=== PATIENT | female | born 1950 | race Caucasian/White ===

== ENCOUNTER 2016-12-07 06:57 | Emergency (ER) | payer SELFPAY ==
[2016-12-07 07:10] VITALS: BP 141/62
--- NOTE | 2016-12-07 07:51 | ER Document Report ---
HPI - HPI Patient complains to provider of: cough and fever Onset: Yesterday - Morning Onset/Duration: Sudden Pain Level: 3 Context: 66-year-old nonsmoker female complaining of sore throat, cough, fever and congestion since yesterday. She wants to know if she has strep throat or influenza because her 38-year-old daughter has metastatic breast cancer. Associated Symptoms: None Exacerbated by: Denies Relieved by: Denies Similar symptoms previously: No - ROS ROS below otherwise negative: Yes Systems Reviewed and Negative: Yes All other systems reviewed and negative - CONSTITUTIONAL Constitutional: REPORTS: Fever - 101.1 last night, Chills - EENT EENT: REPORTS: Nasal Drainage-Clear, Congestion - CARDIOVASCULAR Cardiovascular: DENIES: Chest pain - RESPIRATORY Respiratory: REPORTS: Coughing - Nonproductive - DERM Skin Color: Normal Skin Problems: None - NURSING COMMENTS Comment: Pt states that she has had cold like symptoms since yesterday morning. States that her daughter has CA and she wants to make sure that she cant get sick from this cold. States that she had a fever last night. Reports delroy productive cough. States that her best friend has the Flu and she was also aorund someone this weekend that has strep throat.Pt is AAOX3 with NAD noted at this time. Past Medical History - General Information source: Patient - Social History Smoking Status: Never Smoker Cigarette use (# per day): No Chew tobacco use (# tins/day): No Frequency of alcohol use: None Drug Abuse: None Lives with: Family Family History: Reviewed & Not Pertinent - Medical History Medical History: Negative Renal/ Medical History: Denies: Hx Peritoneal Dialysis Surgical Hx: Negative Past Surgical History: Reports: Hx Hysterectomy - Immunizations Hx Diphtheria, Pertussis, Tetanus Vaccination: Yes Vertical Provider Document - CONSTITUTIONAL Agree With Documented VS: Yes Exam Limitations: No Limitations - INFECTION CONTROL TRAVEL OUTSIDE OF THE [place] IN LAST 30 DAYS: No - HEENT HEENT: Normocephalic - Minimal, PERRLA, Pharyngeal Erythema. negative: Conjuctival Injection, Tympanic Membrane Red, Tympanic Membrane Bulging Notes: Boggy nares, course cough - NECK Neck: Supple. negative: Lymphadenopathy-Left, Lymphadenopathy-Right - RESPIRATORY Respiratory: Breath Sounds Normal, No Respiratory Distress O2 Sat by Pulse Oximetry: 97 - CARDIOVASCULAR Cardiovascular: Regular Rate, Regular Rhythm - GI/ABDOMEN Gastrointestinal: Abdomen Soft, Abdomen Non-Tender - MUSCULOSKELETAL/EXTREMETIES Musculoskeletal/Extremeties: SANDRA MEREDITH - NEURO Level of Consciousness: Awake, Alert - DERM Integumentary: Warm, Dry, No Rash Course - Re-evaluation Re-evalutation: 12/07/16 08:34 Strep and influenza tests are negative. - Vital Signs Vital signs: Temp Pulse Resp BP Pulse Ox 98.4 F 77 16 141/62 H 97 12/07/16 07:06 12/07/16 07:06 12/07/16 07:06 12/07/16 07:06 12/07/16 07:06 Discharge - Discharge Clinical Impression: upper respiratory infection Condition: Good Disposition: HOME, SELF-CARE Instructions: Upper Respiratory Illness ([facility]), Acetaminophen, Use of Over-The- Counter Ibuprofen ([facility]) Additional Instructions: Coolmist humidifier, wash it daily consider using masks when with daughter, keep fresh air circulating in the home wash hands well Plenty of sleep Plenty of fluids Return to the emergency room if worse
== END 2016-12-07 08:39 | disposition home or self-care (01) ==
LOC: ER 06:57
DX: J06.9 Acute upper respiratory infection, unspecified (principal); R05 Cough; R50.9 Fever, unspecified; J02.9 Acute pharyngitis, unspecified; R09.81 Nasal congestion
CPT/HCPCS: 87070; 87804; 87880; 99283

== ENCOUNTER → 2017-06-25 | Outpatient (CLI) | payer OTHER ==
--- NOTE | 2017-06-25 15:29 | WOMENS IMAGING REPORT ---
EXAM DESCRIPTION: BILAT SCREENING MAMMO W/CAD COMPLETED DATE/TIME: 06/25/2017 2:49 pm REASON FOR STUDY: ROUTINE SCREENING; Z12.31 Z12.31 ENCNTR SCREEN MAMMOGRAM FOR MALIGNANT NEOPLASM O F KAREN COMPARISON: Annual priors dating back to December 2008. TECHNIQUE: Standard craniocaudal and mediolateral oblique views of each breast recorded using digita l acquisition. LIMITATIONS: None. FINDINGS: No masses, calcifications or architectural distortion. No areas of suspicion. Read with the assistance of CAD. .[facility] - R2 Cenova Version 1.3 .[facility] Imaging - R2 Cenova Version 1.3 .[facility] - R2 Cenova Version 2.4 .[facility] - R2 Cenova Version 2.4 .[facility] - R2 [employer] Version 9.2 IMPRESSION: NORMAL MAMMOGRAM. BIRADS 1. BREAST DENSITY: b. There are scattered areas of fibroglandular density. BIRAD: 1 NEGATIVE RECOMMENDATION: ROUTINE SCREENING COMMENT: The patient has been notified of the results by letter per SA requirements. Additional no tification policies are in place for contacting patient with suspicious or incomplete findings. Quality ID #[id number]: The [employer] recommends an annual screening mammogram for women aged 40 years or over. This facility utilizes a reminder system to ensure that all patients receive reminder letters, and/or direct phone calls for appointments. This includes reminders for routine scr eening mammograms, diagnostic mammograms, or other Breast Imaging Interventions when appropriate. Th is patient will be placed in the appropriate reminder system. The [employer] (ACR) has developed recommendations for screening MRI of the breast s in certain patient populations, to be used in conjunction with mammography. Breast MRI surveillanc e may be appropriate for women with more than 20% lifetime risk of developing breast cancer as deter mined by genetic testing, significant family history of the disease, or history of mantle radiation f or Hodgkins Disease. ACR Practice Guidelines 2008. TECHNICAL DOCUMENTATION: FINDING NUMBER: (1) ASSESSMENT: (1) JOB ID: [id number] [employer]- All Rights Reserved
== END ==
LOC: WI 14:24
PROVIDERS: ATTEND Family Medicine
DX: Z12.31 Encounter for screening mammogram for malignant neoplasm of breast (principal)
CPT/HCPCS: 77067; G0202

== ENCOUNTER 2019-07-27 19:50 | Emergency (ER) | payer MEDICARE ==
--- NOTE | 2019-07-27 20:16 | ER Document Report ---
ED Medical Screen (RME) - General Chief Complaint: Fall Injury Stated Complaint: FALL Time Seen by Provider: 07/27/19 20:08 Primary Care Provider: TAN BEAR MD [Primary Care Provider] - Follow up as needed Mode of Arrival: Ambulatory Information source: Patient Notes: 68-year-old female presents emergency department after she fell in the parking lot. Reports she tripped and face planted in [facility] parking lot. Denies change in LOC. She has laceration to her lower lip and fractured top#8 tooth.. I have greeted and performed a rapid initial assessment of this patient. A comprehensive ED assessment and evaluation of the patient, analysis of test results and completion of the medical decision making process will be conducted by additional ED providers. Dictation of this chart was performed using voice recognition software; therefore, there may be some unintended grammatical errors. TRAVEL OUTSIDE OF THE [place] IN LAST 30 DAYS: No - Related Data Allergies/Adverse Reactions: Sulfa (Sulfonamide Antibiotics) Allergy (Severe, Verified 12/07/16 07:04) Anaphylaxis morphine Adverse Reaction (Severe, Verified 12/07/16 07:04) VOMITING lincomycin [From Lincocin] Adverse Reaction (Mild, Verified 12/07/16 07:04) Hives Past Medical History - Social History Chew tobacco use (# tins/day): No Frequency of alcohol use: None Drug Abuse: None Renal/ Medical History: Denies: Hx Peritoneal Dialysis Past Surgical History: Reports: Hx Hysterectomy - Immunizations Hx Diphtheria, Pertussis, Tetanus Vaccination: Yes Physical Exam - Vital signs Vitals: Temp Pulse Resp BP Pulse Ox 98.3 F 75 18 146/77 H 99 07/27/19 19:59 07/27/19 19:59 07/27/19 19:59 07/27/19 19:59 07/27/19 19:59 Course - Vital Signs Vital signs: Temp Pulse Resp BP Pulse Ox 98.3 F 75 18 146/77 H 99 07/27/19 19:59 07/27/19 19:59 07/27/19 19:59 07/27/19 19:59 07/27/19 19:59 Doctor's Discharge - Discharge Referrals: TAN BEAR MD [Primary Care Provider] - Follow up as needed
--- NOTE | 2019-07-27 20:45 | ER Document Report ---
ED Fall - General Chief Complaint: Fall Injury Stated Complaint: FALL Time Seen by Provider: 07/27/19 20:08 Primary Care Provider: TAN BEAR MD [Primary Care Provider] - Follow up as needed Mode of Arrival: Ambulatory Information source: Patient Notes: Patient is a 68-year-old female that comes to the emergency department for chief complaint of a fall in the parking lot, she was here with her grandson, morelia, states she was not paying attention and tripped. She landed on her right knee and has abrasions to her lower lip and a small abrasion to her upper lip. She also has a tiny abrasion over the left shoulder. She denies loss of consciousness, vomiting, she is not on a blood thinner, she denies alcohol. Her tetanus is up-to-date within 5 years. TRAVEL OUTSIDE OF THE [place] IN LAST 30 DAYS: No - Related data Allergies/Adverse Reactions: Sulfa (Sulfonamide Antibiotics) Allergy (Severe, Verified 12/07/16 07:04) Anaphylaxis morphine Adverse Reaction (Severe, Verified 12/07/16 07:04) VOMITING lincomycin [From Lincocin] Adverse Reaction (Mild, Verified 12/07/16 07:04) Hives Past Medical History - General Information source: Patient - Social History Smoking Status: Never Smoker Chew tobacco use (# tins/day): No Frequency of alcohol use: None Drug Abuse: None Lives with: Family Family History: Reviewed & Not Pertinent Patient has suicidal ideation: No Patient has homicidal ideation: No Renal/ Medical History: Denies: Hx Peritoneal Dialysis Past Surgical History: Reports: Hx Hysterectomy - Immunizations Immunizations up to date: Yes Hx Diphtheria, Pertussis, Tetanus Vaccination: Yes Review of Systems - Review of Systems Constitutional: No symptoms reported EENT: See HPI Cardiovascular: No symptoms reported Respiratory: No symptoms reported Gastrointestinal: No symptoms reported Genitourinary: No symptoms reported Female Genitourinary: No symptoms reported Musculoskeletal: See HPI Skin: No symptoms reported Hematologic/Lymphatic: No symptoms reported Neurological/Psychological: No symptoms reported Physical Exam - Vital signs Vitals: Temp Pulse Resp BP Pulse Ox 98.3 F 75 18 146/77 H 99 07/27/19 19:59 07/27/19 19:59 07/27/19 19:59 07/27/19 19:59 07/27/19 19:59 - Notes Notes: GENERAL: Alert, interacts well HEAD: Normocephalic, atraumatic. EYES: Pupils equal, round, and reactive to light. Extraocular movements intact. ENT: Oral mucosa moist, tongue midline. Oropharynx unremarkable. Airway patent. Nares patent, no nasal septal hematoma, TM's intact. The lower lip has a small irregular laceration less than 0.5 cm in length, this is superficial and when the lip goes back into normal position this fully approximates. No current bleeding. Small abrasion to the upper lip as well. There is a chipped tooth at tooth #9 without any evidence of trauma to the gum, no signs of trauma or concerning findings in the oropharyngeal exam otherwise. NECK: Full range of motion. Supple. Trachea midline. LUNGS: Clear to auscultation bilaterally, no wheezes, rales, or rhonchi. No respiratory distress. HEART: Regular rate and rhythm. No murmur ABDOMEN: Soft, non-tender. Non-distended. Bowel sounds present in all 4 quadrants. GENITOURINARY: Deferred EXTREMITIES: There is a contusion with small amount of ecchymosis over the proximal tibia of the right leg just below the patella. Range of motion intact, no severe tenderness, no significant swelling to the knee joint, normal distal neurovascular exam. Normal lower extremities otherwise. Normal upper extremities. BACK: no cervical, thoracic, lumbar midline tenderness. No saddle anesthesia, normal distal neurovascular exam. Moves all extremities in full range of motion. NEUROLOGICAL: Alert and oriented x3. Normal speech. Cranial nerves II through XII grossly intact. PSYCH: Appears to have been recently crying but otherwise unremarkable SKIN: Warm, dry, normal turgor. No rashes or lesions noted. Course - Re-evaluation Re-evalutation: Patient with a superficial inner lip laceration on the lower lip, discussed options, decision was made not to close this because it approximates so well, it is superficial, and it is not bleeding. There is a small chipped tooth is well without evidence of trauma to the gums or other oropharyngeal injury. Facial imaging and imaging of the brain negative for acute findings. X-ray of the knee shows chronic tendinitis of the inferior patellar tendon, otherwise unremarkable, I did provide patient with a copy of report and discussed this. Discussed head injury precautions, wound care, follow-up, and return precautions. Patient states appreciation and agreement, requests some tramadol for pain at home, she was provided with this. Stable at time of discharge. - Vital Signs Vital signs: Temp Pulse Resp BP Pulse Ox 98.5 F 70 17 135/78 H 99 07/27/19 22:48 07/27/19 22:48 07/27/19 22:48 07/27/19 22:48 07/27/19 22:48 Discharge - Discharge Clinical Impression: Fall Qualifiers: Encounter type: initial encounter Qualified Code(s): W19.XXXA - Unspecified fall, initial encounter Lip abrasion Qualifiers: Encounter type: initial encounter Qualified Code(s): S00.511A - Abrasion of lip, initial encounter Broken tooth Qualifiers: Encounter type: initial encounter Fracture type: closed Qualified Code(s): S02.5XXA - Fracture of tooth (traumatic), initial encounter for closed fracture Right knee injury Qualifiers: Encounter type: initial encounter Qualified Code(s): S89.91XA - Unspecified injury of right lower leg, initial encounter Condition: Stable Disposition: HOME, SELF-CARE Additional Instructions: The imaging does not show any concerning a normality except for some chronic inflammation of the right patellar tendon as we discussed. Please follow-up with a dentist for your tooth injury, the lip should heal on its own without difficulty with time, clean the area gently with soap and water and you can apply a topical antibiotic to the area. Apply ice to the knee, take ibuprofen or similar medication for the inflammation and pain, if needed take the tramadol for pain as well. Please follow head injury precautions listed below. Follow-up with orthopedics for management of your right knee if symptoms continue. Return for any concerning symptoms. Head Injury Precautions At this point, there is no evidence that your head injury is serious. Observation is necessary, however. Limit activity for the first 24 hours. During the first 24 hours, check to see approximately every two to three hours that the patient is easily arousable, responds normally, and can perform common tasks such as walking without difficulty. Contact your doctor or go to the hospital if any of the following things occur: Persistent vomiting, difficulty in arousing the patient, worsening or continued headache, or failure to improve as expected. Head injuries can cause symptoms that persist for a few days or even a few weeks. Prescriptions: Tramadol HCl [Ultram 50 mg Tablet] 50 mg PO Q4HP PRN #15 tab PRN Reason: Referrals: TAN BEAR MD [Primary Care Provider] - Follow up as needed
--- NOTE | 2019-07-27 21:32 | RADIOLOGY REPORT (SQ) ---
EXAM DESCRIPTION: CT HEAD WITHOUT IV CONTRAST COMPLETED DATE/TME: 07/27/2019 20:11 CLINICAL HISTORY: 68 years, Female, fall COMPARISON: None. TECHNIQUE: Noncontrast CT of the head was performed. Coronal and sagittal reformations were created. Images stored on PACS. All CT scanners at this facility use dose modulation, iterative reconstruction, and/or weight based dosing when appropriate to reduce radiation dose to as low as reasonably achievable (ALARA). [facility]: Dose Right [facility]: CareDose [facility]: Dose Right [facility]: Teradose 4D [facility]: [employer] LIMITATIONS: None. FINDINGS: Assessment of the brain parenchyma reveals mild periventricular and patchy subcortical white matter low attenuation. No acute intracranial hemorrhage, mass effect, or extra-axial fluid is seen. The ventricles, sulcal spaces, and basilar cisterns are normal in size and configuration. Globes and orbits show no acute normality. Paranasal sinuses and mastoid air cells are clear. There are no depressed skull fractures. IMPRESSION: No acute intracranial abnormality. Mild chronic microvascular ischemic change. TECHNICAL DOCUMENTATION: Quality ID # [id number]: Final reports with documentation of one or more dose reduction techniques (e.g., Automated exposure control, adjustment of the mA and/or kV according to patient size, use of iterative reconstruction technique) copyright 2011 [employer]- All Rights Reserved
--- NOTE | 2019-07-27 21:34 | RADIOLOGY REPORT (SQ) ---
EXAM DESCRIPTION: [employer]: CT MAXILLOFACIAL WITHOUT IV CONTRAST CLINICAL HISTORY: 68 years Female; fall TECHNIQUE: High resolution axial CT of the face without contrast, with sagittal and coronal reformatted images. All CT scans at this facility use dose modulation, iterative reconstruction, and/or weight based dosing when appropriate to reduce radiation dose to as low as reasonably achievable. COMPARISON: None. FINDINGS: Facial bones are intact. Mandible is intact. Incidental torus palatini is noted. No lytic bone changes or periosteal reaction. Minimal mucosal thickening in the floor the left maxillary sinus. No sinus air-fluid levels. Mastoids are clear. Degenerative changes are partially visualized in the upper cervical spine. No retro-orbital hematoma. IMPRESSION: 1. No acute facial fractures.
[2019-07-27] MEDS ORDERED: TRAMADOL HCL 50 MG TABLET PO ONE (21:44)
[2019-07-27] MEDS ORDERED: ACETAMINOPHEN 325 MG TABLET PO ONE (21:44)
--- NOTE | 2019-07-27 22:15 | RADIOLOGY REPORT (SQ) ---
EXAM DESCRIPTION: XR KNEE 4 OR MORE VIEWS COMPLETED DATE/TME: 07/27/2019 20:43 CLINICAL HISTORY: 68 years, Female, fall, pain, bruising COMPARISON: None. NUMBER OF VIEWS: 4 TECHNIQUE: 4 view right knee LIMITATIONS: None. FINDINGS: Negative for acute fracture or dislocation. Well-corticated ossific densities associated with the anterior tibial tubercle could reflect chronic patellar tendinopathy. Minor degenerative change patellofemoral compartment. No definitive joint effusion IMPRESSION: Findings suggestive of chronic patellar tendinopathy. Minor degenerative change copyright 2010 [employer]- All Rights Reserved
[2019-07-27] MEDS ORDERED: LIDOCAINE 4%/TETRACAINE 0.5%/EPI 0.18% 5 ML TOPICAL SOLN TOP ONE (22:20)
[2019-07-27 22:59] VITALS: BP 135/78
== END 2019-07-27 22:48 | disposition home or self-care (01) ==
LOC: ER 19:50
DX: S02.5XXA Fracture of tooth (traumatic), initial encounter for closed fracture (principal); S01.511A Laceration without foreign body of lip, initial encounter; S80.11XA Contusion of right lower leg, initial encounter; S40.212A Abrasion of left shoulder, initial encounter; S89.91XA Unspecified injury of right lower leg, initial encounter; W19.XXXA Unspecified fall, initial encounter; Y92.481 Parking lot as the place of occurrence of the external cause; M76.51 Patellar tendinitis, right knee; Z87.892 Personal history of anaphylaxis; Z88.2 Allergy status to sulfonamides
CPT/HCPCS: 99284; 73564; 70450; 70486; A9270 ×2; J3490